=== PATIENT | female | born 1945 | race Hispanic/Latino ===

== ENCOUNTER 2016-10-20 10:50 | Day surgery (SDC) | payer OTHER, MEDICARE ==
[~2016-10-20] VITALS: Ht 142.2 cm; Wt 60.3 kg
[~2016-10-20 10:50] MED LIST: 0.9% Sodium Chloride 1,000 ML IV SCH; FERR325C PO; LISI-571 PO; METF850T2 PO; Sodium Chloride LOK Flush 10 mL Syringe IV PRN; fentaNYL-PF 50 mCg/mL 2 mL Inj IVPUSH PRN
[2016-10-20 12:26] VITALS: BP 141/77; PULSE 65; RESP 16; O2SAT 98
[2016-10-20 13:12] VITALS: BP 125/65; PULSE 68; RESP 12; O2SAT 95
[2016-10-20 13:28] VITALS: BP 119/59; PULSE 75; RESP 12; O2SAT 98
[2016-10-20 13:43] VITALS: BP 167/80; PULSE 63; RESP 12; O2SAT 99
--- NOTE | 2016-10-20 18:46 | ENDO ---
[address] [address] ENDOSCOPY PROCEDURE PATIENT: FRANC ALLEN : 1945 MR#: [id number] ADMIT: 10/20/2016 JOB ID: [id number] PROCEDURE: Colonoscopy. INDICATION: Patient with a history of colon cancer for which she underwent a left hemicolectomy. Patient's ASA classification is two. Mallampati score is two. MEDICATIONS: 1. Versed 2 mg. 2. Fentanyl 50 mcg. INSTRUMENT USED: PCF H 190 AL. PREPARATION QUALITY: Fair. PROCEDURE DETAILS: After informed consent was obtained, the patient was brought into the GI suite, where she was placed on oxygen via nasal cannula and monitored with continuous pulse oximeter, telemetry, and blood pressure monitoring. A time-out was performed, then she was placed in a left lateral decubitus position. Medications were administered for sedation. Digital rectal exam was performed, which was unremarkable. The colonoscope was then inserted into the rectum and advanced under direct visualization to the cecum, which was identified by the presence of the ileocecal valve and appendiceal orifice. Once the cecum was reached, the colonoscope was withdrawn back into the rectum as the mucosa and lumen were examined. In the rectum, retroflexion was performed. Following retroflexion, the remaining air in the rectum was suctioned and the procedure was completed. FINDINGS: 1. At 45 cm there was evidence of a colo-colo anastomosis consistent with the patient's prior history of left hemicolectomy. 2. Scattered diverticula were seen throughout the descending colon. IMPRESSION: 1. Hooker-colo anastomosis. 2. Left-sided diverticulosis. RECOMMENDATIONS: Repeat colonoscopy in one year. COMPLICATIONS: None. ESTIMATED BLOOD LOSS: Zero.
== END 2016-10-20 23:59 | disposition home or self-care (01) ==
LOC: END 10:50
PROVIDERS: ATTEND Internal Medicine Gastroenterology
DX: Z12.11 Encounter for screening for malignant neoplasm of colon (principal); Z85.038 Personal history of other malignant neoplasm of large intestine; K57.30 Diverticulosis of large intestine without perforation or abscess without bleeding; K63.89 Other specified diseases of intestine; E11.9 Type 2 diabetes mellitus without complications; Z79.84 Long term (current) use of oral hypoglycemic drugs; Z90.49 Acquired absence of other specified parts of digestive tract
CPT/HCPCS: G0105; G0500; J2250; J3010; J7030

== ENCOUNTER 2016-11-01 11:30 | Day surgery (SDC) | payer OTHER, MEDICARE ==
[2016-11-01] VITALS (7 sets, daily range): BP systolic 135–150; BP diastolic 58–81; PULSE 71–98; RESP 16–20; O2SAT 97–99
[~2016-11-01] VITALS: Ht 147.3 cm; Wt 59.3 kg
[~2016-11-01 11:30] MED LIST changes: -0.9% Sodium Chloride 1,000 ML IV SCH; +CeFAZolin 2 Gm/50 mL D5W IV Premix IV SCH; -FERR325C PO; +GLIP10TA10 PO; -Sodium Chloride LOK Flush 10 mL Syringe IV PRN; -fentaNYL-PF 50 mCg/mL 2 mL Inj IVPUSH PRN
[2016-11-01] MEDS ORDERED: Propofol 10,000 mCg/mL 20 mL Inj ONE (11:31)
[2016-11-01] MEDS ORDERED: Ondansetron 2 mg/mL 2 mL Inj ONE (11:31)
[2016-11-01] MEDS ORDERED: Rocuronium 10 mg/mL 5 mL Inj ONE (11:31)
[2016-11-01] MEDS ORDERED: EPHEDrine/NS 5 mg/mL 5 mL Syringe ONE (11:31)
[2016-11-01] MEDS ORDERED: fentaNYL-PF 50 mCg/mL 2 mL Inj ONE (11:31)
[2016-11-01] MEDS: Lactated Ringer's 1,000 ML IV SCH ×2 (11:39→14:02)
[2016-11-01] MEDS ORDERED: Bupivacaine-MPF 0.5% W/EPI 30 mL Inj INFILTRATE ONE (14:02)
[2016-11-01] MEDS ORDERED: Lactated Ringer's 500 ML IV PRN (14:07)
[2016-11-01] MEDS ORDERED: Lactated Ringer's 1,000 ML IV SCH (14:07)
--- NOTE | 2016-11-01 14:07 | PCM.HPANE ---
Patient Data Surgeon Admitting Provider: Attending Provider:Karthikeyan Angel MD Primary Care Physician:Cherelle Mcfadden MD Other Provider[place] [place] [facility] Reason for Visit Head Mass Ht/WT & BMI Height (Feet): 4 Height (Inches): 10 Weight (Kilograms): 59.3 Body Mass Index 27.00 Allergies Coded Allergies: No Known Allergies (Verified , 12/05/05) Past Anesthesia History Anesthesia History: Denies:: Abnormal Airway, Anesthesia Reactions, Difficult Intubation, Fam Anesthesia Reaction, Fam Malignant Hypertherm, Malignant Hyperthermia Diabetes History Hx Diabetes?: Yes Type of Diabetes: Type II Glycemic Control: Oral Medication Current Bedside Blood Glucose: 142 MRSA MRSA: No Medications Hypertension Medication: Yes Home Meds Incl Beta Angelina: No Reported Medications Glipizide 10 Mg [id number] Mg PO DAILY 30 Days 10/30/16 Metformin 850 Mg Tablet1,000 Mg PO BID Ref 0 10/20/15 Lisinopril 5 Mg Tablet5 Mg PO DAILY Ref 0 12/10/14 Discontinued Reported Medications Ferrous Sulfate (Iron)325 Mg Capsule.er325 Mg PO 10/20/15 History History of ENT Problems?: No HEENT History: Denies:: Abnormal Airway Difficult Intubation Dysphagia Hearing Problem Sinus Problem TMJ Denture Type: Full- Upper Teeth Condition: No Teeth Hx of Heart Problems?: Yes Cardiovascular History: Positive for:: Hypertension (well controlled on single agent, stable dose) Denies:: AICD Atrial Fibrillation Chest Pain Pacemaker Hx of Respiratory Problem?: No Respiratory History: Denies:: Asthma COPD Chest Surgery Cough Dyspnea Emphysema Hemoptysis Pneumonia Pulmonary Embolism Tuberculosis Use of C-PAP Machine Use of Inhalers / NEBS Hx Neurologic Problems?: No Neurological History: Denies:: Alzheimer's Disease CVA Dementia Dizziness Headaches Multiple Sclerosis Parkinson's Disease TIA Hx of GI Problems?: No Gastrointestinal History: Denies:: Cirrhosis Diverticulitis Gall Bladder Disease Gastroesphageal Reflux Gastrointestinal Bleeding Heartburn Hepatitis Hiatal Hernia Liver Disease Rectal Bleeding Hx of Problems?: No Genitourinary History: Denies:: HX of Hemodialysis HX of Peritoneal Dialysis: No Female Hx: Denies:: Currently Skin History: Denies:: History Skin Disorders? Hx Musculoskeletal Problems?: Yes Musculoskeletal History: Positive for:: Joint Replacement (BILAT KNEES) Osteoarthritis Denies:: Back Injury Fibromyalgia Musculoskeletal Trauma Myasthenia Gravis Rheumatoid Arthritis Systemic Lupus Hx of Psycho/Social Problems?: No Psycho Social History: Denies:: Anxiety Hx Depression Hx Surgeries?: Yes (BILAT TOTAL KNEES, BLADDER SUSP, COLON CA, ) Hx Any Other Health Problems?: Yes Other History: Positive for:: Cancer (COLON 2013) Hospitalization Denies:: Endocrine Disease History Blood Transfusions: Positive for:: Accept Blood Products? Denies:: Blood Transfusions Hx Diabetes: YesBedside Blood Glucose: 142 Hx Alcohol Use: NoHx Substance Use: No Smoking Status: Never Smoker Have You Smoked inLast 12 mo: No Stop/Bang S-Snoring: Do You Snore Loudly: No T-Tired: feel tired, fatigued: No O-Obsered: Observed not breath: No P-Blood Pressure: treated: Yes B- Body Mass Index > 35 kg/m2: No A- Age over 50: Yes N- Neck Large Circumference: No G- Gender Male: No TERI Total Score: 2 TERI Risk Assessment: Low Risk, <3 Yes Risk Assessment Category Category 1A: Patient has history of documented sleep apnea, and HAS NOT received any narcotic, sedative or anesthesia administration during this stay. Category 1B: Patient has history of documented sleep apnea, and HAS received any narcotic , sedative or anesthesia administration during this stay Category 2: Patient has SUSPECTED Obstructive Sleep Apnea, and HAS received any narcotic , sedative or anesthesia administration during this stay. Category 3: Patient has SUSPECTED Obstructive Sleep Apnea and HAS NOT received narcotic, sedative or anesthesia administration during this stay. Category 4: Outpatient in Procedural Areas with known sleep apnea or who screen positive for High Risk via the STOP/BANG questionnaire. Exam Exam Vital Signs Vital Signs Date Time Temp Pulse Resp B/P Pulse Ox O2 Delivery O2 Flow Rate FiO2 11/01/16 11:53 36.5 71 16 143/58 98 Room Air General Appearance: Alert, Oriented X3, No Acute Distress HEENT/AIRWAY: MP 2 Lungs: Clear to Auscultation Heart: Exam Unremarkable, Regular Rate/Rhythm, Normal S1, Normal S2, No Murmurs /Rubs/Gallops Meds/Labs/Diagnostics Admission Meds Current Medications Lactated Ringer's (Lr) 1,000 ml @ 120 mls/hr Q8H20M IV Last administered on t 11:39; Start 11/01/16 at 05:00; Stop 11/01/16 at 13:22; Status DC Bedside Blood Glucose: 142 Plan Impression Patient chart reviewed, patient interviewed and anesthestic plan with risks, benefits, and alternatives discussed, and informed consent obtained. NPO per Anesth. Guidelines: Yes ASA Physical Status: ASA2 Mod Systemic Disease Anesthetic Plan: GA Bene/Risks/Altern/Consents: Yes HP Complete Prior to Induction: Yes Luis A Craven MD Nov 01, 2016 14:07
[2016-11-01] MEDS ORDERED: EPHEDrine Sulfate 50 mg/mL Inj IVPUSH PRN (14:10)
[2016-11-01] MEDS ORDERED: MetoCLOpramide 5 mg/mL 2 mL Inj IVPUSH PRN (14:10)
[2016-11-01] MEDS ORDERED: Dexamethasone 4 mg/mL Inj IVPUSH PRN (14:10)
[2016-11-01] MEDS ORDERED: Phenylephrine 10,000 mCg/mL Inj IVPUSH PRN (14:10)
[2016-11-01] MEDS ORDERED: fentaNYL-PF 50 mCg/mL 2 mL Inj IVPUSH PRN (14:10)
[2016-11-01] MEDS ORDERED: Ondansetron 2 mg/mL 2 mL Inj IVPUSH PRN (14:10)
[2016-11-01] MEDS ORDERED: HYDROmorphone 1 mg/mL Inj IVPUSH PRN (14:10)
--- NOTE | 2016-11-01 14:31 | PCM.ANEP1 ---
Post Anesthesia PACU Phase 1 Assessment Vital Signs Vital Signs Date Time Temp Pulse Resp B/P Pulse Ox O2 Delivery O2 Flow Rate FiO2 11/01/16 14:25 36.1 98 20 150/73 98 Room Air 11/01/16 11:53 36.5 71 16 143/58 98 Room Air Anesthetic Administered: GA Level of Alertness: Awake, talking CASTREJON's with Equal Strength: Yes Pain: No Nausea or Vomiting: No CV Function & Hydration Stable: Yes Airway Device: Oxygen Delivery: Room Air Lungs: Clear to Auscultation, Normal Air Movement Dermatome Level: Full Sensation PACU Phase 2 Assessment Complications: No Follow up Care: No Patient Instructions Provided: N/A Luis A Craven MD Nov 01, 2016 14:30
--- NOTE | 2016-11-03 16:35 | OP ---
[address] [address] OPERATIVE REPORT PATIENT: FRANC ALLEN : 1945 MR#: [id number] ADMIT: 11/01/2016 JOB ID: [id number] DATE OF SURGERY: 11/01/2016 PREOPERATIVE DIAGNOSIS(ES): Right forehead/calvarial bony mass. POSTOPERATIVE DIAGNOSIS(ES): Right forehead/calvarial bony mass. PROCEDURE: 1. Excision of right forehead bony mass, contour of forehead bone 1.5 cm. 2. Layered closure of right forehead defect. Total length of layered closure 2 cm. SURGEON: Karthikeyan Angel MD CRYSTAL EVALUATOR: None. ANESTHESIA: General anesthesia. COMPLICATIONS: None apparent. SPECIMEN: Right forehead mass to Pathology. DRAINS: None. COMPLICATIONS: None apparent. INDICATIONS FOR PROCEDURE: This is a 71-year-old female patient with a slowly enlarging right forehead mass. At this point excision is indicated for tissue diagnosis. PROCEDURES AND FINDINGS: The patient was identified in the preoperative area. Surgical site was marked. The patient was then taken back to the operating room and placed supine on the operating table. Appropriate time-outs were taken. General anesthesia was induced smoothly. The patient was then prepped and draped in the usual sterile manner. I infiltrated some 0.25% Marcaine to the surgical site for postoperative pain. It was noted that patient has a 1.5 cm firm, round mass on her forehead [address] to the hair line, just right of the midline. A transverse incision was then made directly over the mass, just superior to a natural skin crease, with a #15 blade. I then performed blunt dissection in longitudinal manner down to the underlying frontalis muscle. The frontalis muscle was split along its fibers. I then performed blunt dissection to hold the muscle fibers medially and laterally, exposing a bony mass. The incision was made with a #15 blade through the periosteum. A Breeden elevator was then used to elevate the periosteum off of this mass circumferentially. At this point a half-inch osteotome was then used to chip the mass away from the frontal bone. The mass came away quite easily. This was passed off to Pathology as a specimen. Using the same osteotome, I smoothed the contour in this area. The area was then irrigated with some saline solution. The frontalis muscle was then reapproximated using several 4-0 Monocryl [id number] sutures. A layer of 3-0 Monocryl deep dermal sutures was then placed, followed by 4-0 Monocryl running subcuticular suture. Skin glue was applied. The mass diameter was approximately 1.5 cm to 2 cm. The skin incision closure length was 2 cm. The patient tolerated the procedure well. Needle count, sponge count, and instrument counts were correct at the end of the procedure. The patient was extubated and transported to recovery in stable condition.
--- NOTE | 2016-11-08 12:03 | PATH ---
SURGICAL PATHOLOGY Attending Physician:Karthikeyan Angel CASE STATUS: Signed Out PATIENT NAME: FRANC ALLEN PID: [id number] : 1945 DATE COLLECTED:11/01/2016 00:00 SPECIMEN: Mass, NOS CLINICAL HISTORY: BONE MASS FOREHEAD 1). RIGHT FOREHEAD BONY MASS FINAL DIAGNOSIS: 1.RIGHT FOREHEAD BONY MASS, BIOPSY: SPARSE BONE TRABECULAE WITH NO ASSOCIATED TISSUE; PLEASE SEE COMMENT. THE INKED SURGICAL MARGIN CONSISTS OF UNREMARKABLE FIBROUS CONNECTIVE TISSUE. ICD10 D48.5 NOTE: The biopsy shows only fragmented bone trabeculae which are surrounded by histologically unremarkable fibrous connective tissue. Due to the fragmentation of the bony portion of the lesion and loss of a significant amount of the bony tissue, one cannot make an accurate diagnosis as to the etiology of the bony mass. There is no evidence of atypia or malignancy. GROSS DESCRIPTION: The specimen is received in formalin, labeled with the patient's name, sublabeled as right bony forehead mass, and consists of an unoriented piece of yellow semi-translucent hard tissue (1.3 x 1.1 x 0.5 cm). The tissue cannot be sliced with a scalpel. The cut surface is semi-translucent and homogeneous. Ink code: black-resection margin. Section code: (A) tissue, perpendicularly sectioned, sales representative publications. Note: The specimen has been decalcified. 11/02/16 JM MICRO DESCRIPTION: See diagnosis. ICD-9 CODES: CPT CODES: 1: 02129 Electronically Signed Out Jimmy Roldan MD, PhD [facility] [address], [place] [address] Technical component performed at [facility], [address] [place] [address] Ave[address], [place], [address]
== END 2016-11-01 23:59 | disposition home or self-care (01) ==
LOC: SAS 11:30
PROVIDERS: ATTEND Plastic Surgery
DX: D48.5 Neoplasm of uncertain behavior of skin (principal); R22.0 Localized swelling, mass and lump, head; I10 Essential (primary) hypertension; E11.9 Type 2 diabetes mellitus without complications; Z96.653 Presence of artificial knee joint, bilateral; Z85.038 Personal history of other malignant neoplasm of large intestine; Z79.84 Long term (current) use of oral hypoglycemic drugs
CPT/HCPCS: 21029; J0690; J2405; J2704; J3010; J7120